=== PATIENT | male | born 1970 | race African-American/Black ===

== ENCOUNTER 2016-12-05 16:23 | Emergency (ER) | payer OTHER ==
[~2016-12-05] VITALS: Ht 175.3 cm; Wt 83.5 kg
[2016-12-05] MEDS ORDERED: NORCO 5-325 TA1 EACH PO (18:22)
[2016-12-05 19:00] VITALS: BP 144/93
== END 2016-12-05 19:44 | disposition home or self-care (01) ==
LOC: ER 16:23
DX: S42.292A Other displaced fracture of upper end of left humerus, initial encounter for closed fracture (principal); W18.09XA Striking against other object with subsequent fall, initial encounter; Y93.39 Activity, other involving climbing, rappelling and jumping off; Y92.34 Swimming pool (public) as the place of occurrence of the external cause; Y99.8 Other external cause status